=== PATIENT | female | born 1985 | race American Indian/Alaskan Native ===

== ENCOUNTER 2020-07-26 01:48 | Emergency (ER) | payer MEDICAID ==
[2020-07-26 02:38] LABS: Bacteria,Urine 4+ /HPF (Negative); Bilirubin,Urine NEG (Negative); Blood,Urine LG (Negative); Color,Urine Red (Yellow); HCG Qualitative,Urine Negative (Negative); Urobilinogen,Urine < 2.0 mg/dL (<2.0)
[2020-07-26 02:39] LABS: RBC,Urine > 182.0 /HPF (0.0-6.0)
--- NOTE | 2020-07-26 07:40 | Emergency Department Report ---
ED Female HPI - General Chief complaint: Vaginal Bleeding Stated complaint: BLEEDING Time Seen by Provider: 07/26/20 07:22 Source: patient Mode of arrival: Ambulatory Limitations: No Limitations - History of Present Illness Initial comments: This is a 34-year-old female with a history of thyroid disorder, hypertension controlled with medication who presents to the ED complaining of irregular menstrual cycles and yesterday. Patient states that yesterday she began her menstrual cycle normally she is not bleeding heavily. Patient states that she n oticed some heavier vaginal bleeding with some clotting so she decided presented to the emergency room. Patient denies any fatigue, fever, chills, shortness of breath, dizziness, lightheadedness or any other symptoms. Patient simply states that she was worried some clotting. Patient denies pelvic pain, dyspareunia, dysuria or abdominal pain. MD Complaint: vaginal bleeding - Related Data Previous Rx's Medication Instructions Recorded Last Taken Type Nitrofurantoin [place]/M-Cryst 100 mg PO Q12HR #10 capsule 07/26/20 Unknown Rx [Macrobid CAP] Allergies Allergy/AdvReac Type Severity Reaction Status Date / Time salmon oil Allergy Unknown Verified 07/26/20 02:04 ED Review of Systems ROS: Stated complaint: BLEEDING Other details as noted in HPI Comment: All other systems reviewed and negative ED Past Medical Hx - Past Medical History Hx Hypertension: Yes Additional medical history: anemia; C-diff - Surgical History Additional Surgical History: thyroidectomy - Social History Smoking Status: Never Smoker - Medications Home Medications: Home Medications Medication Instructions Recorded Confirmed Last Taken Type Nitrofurantoin [place]/M-Cryst 100 mg PO Q12HR #10 capsule 07/26/20 Unknown Rx [Macrobid CAP] ED Physical Exam - General Limitations: No Limitations General appearance: alert, in no apparent distress - Head Head exam: Present: atraumatic, normocephalic - Eye Eye exam: Present: normal appearance - ENT ENT exam: Present: mucous membranes moist - Neck Neck exam: Present: normal inspection - Respiratory Respiratory exam: Present: normal lung sounds bilaterally. Absent: respiratory distress - Cardiovascular Cardiovascular Exam: Present: regular rate, normal rhythm. Absent: systolic murmur, diastolic murmur, rubs, gallop - GI/Abdominal GI/Abdominal exam: Present: soft, normal bowel sounds - Extremities Exam Extremities exam: Present: normal inspection, full ROM, normal capillary refill - Back Exam Back exam: Present: normal inspection - Neurological Exam Neurological exam: Present: alert, oriented X3 - Psychiatric Psychiatric exam: Present: normal affect, normal mood - Skin Skin exam: Present: warm, dry, intact, normal color. Absent: rash ED Course Vital Signs 07/26/20 07/26/20 02:07 08:47 Temperature 98.3 F Pulse Rate 73 71 Respiratory 16 16 Rate Blood Pressure 139/88 Blood Pressure 127/81 [Left] O2 Sat by Pulse 100 98 Oximetry ED Medical Decision Making - Lab Data Result diagrams: 07/26/20 07:29 07/26/20 07:29 Laboratory Last Values WBC 8.9 K/mm3 (4.5-11.0) 07/26/20 07:29 RBC 4.42 M/mm3 (3.65-5.03) 07/26/20 07:29 Hgb 8.3 gm/dl (10.1-14.3) L 07/26/20 07:29 Hct 27.6 % (30.3-42.9) L 07/26/20 07:29 MCV 63 fl (79-97) L 07/26/20 07:29 MCH 19 pg (28-32) L 07/26/20 07:29 MCHC 30 % (30-34) 07/26/20 07:29 RDW 20.7 % (13.2-15.2) H 07/26/20 07:29 Plt Count 321 K/mm3 (140-440) 07/26/20 07:29 Lymph % (Auto) [employer] 07/26/20 07:29 Lymph # (Auto) [employer] 07/26/20 07:29 Seg Neutrophils % [employer] 07/26/20 07:29 Sodium 137 mmol/L (137-145) 07/26/20 07:29 Potassium 4.5 mmol/L (3.6-5.0) 07/26/20 07:29 Chloride 101.7 mmol/L (98-107) 07/26/20 07:29 Carbon Dioxide 25 mmol/L (22-30) 07/26/20 07:29 Anion Gap 15 mmol/L 07/26/20 07:29 BUN 12 mg/dL (7-17) 07/26/20 07:29 Creatinine 1.0 mg/dL (0.6-1.2) 07/26/20 07:29 Estimated GFR > 60 ml/min 07/26/20 07:29 BUN/Creatinine Ratio 12 % 07/26/20 07: Glucose 72 mg/dL (65-100) 07/26/20 07: Calcium 8.3 mg/dL (8.4-10.2) L 07/26/20 07:29 Urine Color Red (Yellow) 07/26/20 02:24 Urine Turbidity Clear (Clear) 07/26/20 02:24 Urine pH 7.0 (5.0-7.0) 07/26/20 02:24 Ur Specific [place] 1.003 (1.003-1.030) 07/26/20 02:24 Urine Protein 100 mg/dl mg/dL (Negative) 07/26/20 02:24 Urine Glucose (UA) Neg mg/dL (Negative) 07/26/20 02:24 Urine Ketones Neg mg/dL (Negative) 07/26/20 02:24 Urine Blood Lg (Negative) 07/26/20 02:24 Urine Nitrite Neg (Negative) 07/26/20 02:24 Urine Bilirubin Neg (Negative) 07/26/20 02:24 Urine Urobilinogen < 2.0 mg/dL (<2.0) 07/26/20 02:24 Ur Leukocyte Esterase Sm (Negative) 07/26/20 02:24 Urine WBC (Auto) 22.0 /HPF (0.0-6.0) H 07/26/20 02:24 Urine RBC (Auto) > 182.0 /HPF (0.0-6.0) 07/26/20 02:24 U Epithel Cells (Auto) 2.0 /HPF (0-13.0) 07/26/20 02:24 Urine Bacteria (Auto) 4+ /HPF (Negative) 07/26/20 02:24 Urine HCG, Qual Negative (Negative) 07/26/20 02:24 - Medical Decision Making This 34-year-old female in no acute distress speaking in clear sentences presented for evaluation of vaginal bleeding during her normal menstrual cycle. CBC shows no depression with H&H. Urinalysis positive for 4+ bacteria leukocyte esterase. Patient will be sent home with Macrobid for treatment of UTI. urine test was negative. I discussed all findings with the patient. I discussed with patient that sometimes heavier cycles are normal. Patient to follow-up with her [facility] [facility] for further work-up. At this time patient is hemodynamically stable. No respiratory distress. At this time patient will be safe for discharge to follow-up. Referrals given Critical care attestation.: If time is entered above; I have spent that time in minutes in the direct care of this critically ill patient, excluding procedure time. ED Disposition Clinical Impression: Menorrhagia, UTI (urinary tract infection) Disposition: TO HOME OR SELFCARE Is pt being admited?: No Does the pt Need Aspirin: No Condition: Stable Instructions: Metrorrhagia, [id number], Urinary Tract Infection, Adult, [id number] Additional Instructions: Make sure to follow up with the primary care physician as discussed. Take all your medications as you've been prescribed. If you have any worsening symptoms or develop new symptoms please return to ED immediately. Prescriptions: Nitrofurantoin [place]/M-Cryst [Macrobid CAP] 100 mg PO Q12HR #10 capsule Referrals: PRIMARY CARE, [Primary Care Provider] - 3-5 Days [facility]Provider Group] - 3-5 Days Forms: Work/School Release Form(ED) Time of Disposition: 09:04
[2020-07-26 07:48] LABS: Hematocrit 27.6 % (30.3-42.9); Hemoglobin 8.3 gm/dl (10.1-14.3); Mean Corpuscular HGB Conc 30 % (30-34); Platelet Count 321 K/mm3 (140-440); Red Blood Count 4.42 M/mm3 (3.65-5.03)
[2020-07-26 07:52] LABS: Mean Corpuscular Volume 63 fl (79-97)
[2020-07-26 07:53] LABS: Red Cell Distribution Width 20.7 % (13.2-15.2)
[2020-07-26 08:10] LABS: BUN/Creatinine Ratio 12; Blood Urea Nitrogen 12 mg/dL (7-17); Calcium 8.3 mg/dL (8.4-10.2); Hemolysis Index 6
[2020-07-26 08:50] VITALS: BP 127/81
[2020-07-26 11:01] LABS: Total Cells Counted 100
[2020-07-26 11:03] LABS: Anisocytosis 1+; Hypochromasia 2+; Target Cells Few
[2020-07-26 11:04] LABS: Platelet Estimate Consistent w Auto
== END 2020-07-26 08:50 | disposition home or self-care (01) ==
LOC: ED 01:48
DX: N39.0 Urinary tract infection, site not specified (principal); N92.0 Excessive and frequent menstruation with regular cycle; I10 Essential (primary) hypertension; Z90.89 Acquired absence of other organs; Z79.899 Other long term (current) drug therapy; Z88.8 Allergy status to other drugs, medicaments and biological substances
CPT/HCPCS: 36415; 80048; 81001; 81025; 85007; 85025; 87086

== ENCOUNTER 2021-09-30 18:17 | Emergency (ER) | payer MEDICAID ==
--- NOTE | 2021-09-30 19:15 | XRay Report ---
LEFT ANKLE 3 VIEW(S) INDICATION / CLINICAL INFORMATION: pain COMPARISON: None available. FINDINGS: BONES / JOINT(S): No acute fracture or subluxation. No significant arthritis. SOFT TISSUES: No significant abnormality. ADDITIONAL FINDINGS: None. Signer Name: Artem Stafford DO Signed: 09/30/2021 7:10 PM Workstation Name: [id number]
[2021-10-01] MEDS ORDERED: HYDROcodone/ACETAMINOPHEN 5-325 MG TAB PO ONE (03:01)
--- NOTE | 2021-10-01 03:44 | Emergency Department Report ---
ED General Adult HPI - General Chief complaint: Extremity Injury, Lower Stated complaint: LEFT ANKLE PAIN Time Seen by Provider: 10/01/21 00:48 Source: EMS Mode of arrival: Wheelchair Limitations: Physical Limitation - History of Present Illness Initial comments: 36-year-old female presents emerged from complaining of atraumatic foot pain to the ankle and dorsum of the foot as entrapment swelling fashion with increasingly worsening redness. She reports no numbness, no tingling, no fever, chills, sweats no known mechanism for injury -: Gradual, Sudden Radiation: non-radiation Severity scale (0 -10): 8 Quality: dull Improves with: none Worsens with: movement Associated Symptoms: denies other symptoms. denies: confusion, chest pain, diaphoresis, loss of appetite, nausea/vomiting, shortness of breath, syncope, weakness, other Treatments Prior to Arrival: none - Related Data Previous Rx's Medication Instructions Recorded Last Taken Type Nitrofurantoin [place]/M-Cryst 100 mg PO Q12HR #10 capsule 07/26/20 Unknown Rx [Macrobid CAP] Ketorolac [Toradol] 10 mg PO Q6H PRN #15 tablet 10/01/21 Unknown Rx cephALEXin [Keflex] 500 mg PO Q6HR #40 capsule 10/01/21 Unknown Rx Allergies Allergy/AdvReac Type Severity Reaction Status Date / Time salmon oil Allergy Unknown Verified 09/30/21 18:48 ED Review of Systems ROS: Stated complaint: LEFT ANKLE PAIN Other details as noted in HPI Comment: All other systems reviewed and negative ED Past Medical Hx - Past Medical History Previous Medical History?: Yes Hx Hypertension: Yes Additional medical history: anemia; C-diff - Surgical History Additional Surgical History: thyroidectomy - Social History Smoking Status: Never Smoker - Medications Home Medications: Home Medications Medication Instructions Recorded Confirmed Last Taken Type Nitrofurantoin [place]/M-Cryst 100 mg PO Q12HR #10 capsule 07/26/20 Unknown Rx [Macrobid CAP] Ketorolac [Toradol] 10 mg PO Q6H PRN #15 tablet 10/01/21 Unknown Rx cephALEXin [Keflex] 500 mg PO Q6HR #40 capsule 10/01/21 Unknown Rx ED Physical Exam - General Limitations: Physical Limitation General appearance: alert, in no apparent distress - Head Head exam: Present: atraumatic, normocephalic - Eye Eye exam: Present: normal appearance - ENT ENT exam: Present: mucous membranes moist - Neck Neck exam: Present: normal inspection - Respiratory Respiratory exam: Present: normal lung sounds bilaterally. Absent: respiratory distress - Cardiovascular Cardiovascular Exam: Present: regular rate, normal rhythm. Absent: systolic murmur, diastolic murmur, rubs, gallop - GI/Abdominal GI/Abdominal exam: Present: soft, normal bowel sounds - Extremities Exam Extremities exam: Present: normal inspection, tenderness, normal capillary refill, other (Swelling and tenderness of the right foot with some redness on the dorsum of the foot as it seems to be invading up to the ankle. Warmth with palpation. No crepitus or subcutaneous emphysema. There is On[place]ul mycosis present large bunions present which also have a local erythema present as well.) - Back Exam Back exam: Present: normal inspection. Absent: CVA tenderness (R), CVA tenderness (L) - Neurological Exam Neurological exam: Present: alert, oriented X3, CN II-XII intact - Psychiatric Psychiatric exam: Present: normal affect, normal mood - Skin Skin exam: Present: warm, dry, intact, normal color. Absent: rash ED Course Vital Signs 09/30/21 18:43 Temperature 98.0 F Pulse Rate 64 Respiratory 16 Rate Blood Pressure 146/90 [Left] O2 Sat by Pulse 98 Oximetry Critical care attestation.: If time is entered above; I have spent that time in minutes in the direct care of this critically ill patient, excluding procedure time. ED Disposition Clinical Impression: Cellulitis of foot, Foot pain Disposition: HOME / SELF CARE / HOMELESS Is pt being admited?: No Does the pt Need Aspirin: No Condition: Stable Instructions: Cellulitis, Adult, How to Use Cold Therapy, Foot Pain Prescriptions: cephALEXin [Keflex] 500 mg PO Q6HR #40 capsule Ketorolac [Toradol] 10 mg PO Q6H PRN #15 tablet PRN Reason: Pain Referrals: JAKE CASH MD [Staff Physician] - 3-5 Days
[2021-10-01 03:56] VITALS: BP 139/82
== END 2021-10-01 03:57 | disposition home or self-care (01) ==
LOC: ED 18:17
DX: L03.116 Cellulitis of left lower limb (principal); M79.672 Pain in left foot; I10 Essential (primary) hypertension; Z91.013 Allergy to seafood
CPT/HCPCS: 99283